=== PATIENT | male | born 2000 | race Two or more races ===

== ENCOUNTER 2025-02-08 11:28 | Emergency (ER) | payer SELFPAY ==
[2025-02-08 12:37] LABS: BASOPHILS ABSOLUTE AUTO 0.0 K/mm3 (0.0-0.2); BASOPHILS PERCENT AUTO 0.4 % (0.0-1.0); EOSINOPHILS ABSOLUTE AUTO 0.0 K/mm3 (0.0-0.4); EOSINOPHILS PERCENT AUTO 0.4 % (0.0-6.0); IMMATURE GRAN ABSOLUTE AUTO 0.01 K/mm3 (0.00-0.05); IMMATURE GRAN PERCENT AUTO 0.1 % (0.0-0.4); LYMPHOCYTES ABSOLUTE AUTO 1.0 K/mm3 (1.0-4.8); LYMPHOCYTES PERCENT AUTO 12.2 % (24.0-44.0); MEAN PLATELET VOLUME 9.9 fl (9.4-12.4); MONOCYTES ABSOLUTE AUTO 0.4 K/mm3 (0.0-0.8); MONOCYTES PERCENT AUTO 5.0 % (0.0-8.0); NEUTROPHILS ABSOLUTE AUTO 6.7 K/mm3 (1.8-7.7); NEUTROPHILS PERCENT AUTO 81.9 % (41.0-71.0); NRBC ABSOLUTE 0.00 (0.00-0.02); NRBC PERCENT 0.0 % (0.0-0.2); PLATELET COUNT,PLT 211 K/mm3 (150-400); RED BLOOD CELL COUNT 4.97 M/mm3 (4.52-5.90); WHITE BLOOD CELL COUNT,WBC 8.17 K/mm3 (3.9-11.3)
[2025-02-08 13:01] LABS: A/G RATIO 0.9 (1-2); ALANINE AMINOTRANSFERASE,ALT 34.0 U/L (16-63); ASPARTATE AMNIOTRANSFERASE,AST 21.0 U/L (15-37); BILIRUBIN TOTAL 0.4 mg/dL (0.2-1.0); BLOOD UREA NITROGEN,BUN 17.0 mg/dL (7-18); CARBON DIOXIDE,CO2 30.0 mEq/L (21-32); CHLORIDE,CL 105.0 mEq/L (98-107); CREATININE 1.1 mg/dL (0.7-1.3); EST CRCL DRUG DOSING (CG) 130.42 mL/min; ESTIMATED GFR 98.0 mL/min (>60); GLUCOSE RANDOM 100.0 mg/dL (70-99); POTASSIUM,K 4.2 mEq/L (3.5-5.1); PROTEIN TOTAL,TP 7.0 g/dl (6.4-8.2); SODIUM,NA 140.0 mEq/L (136-145); TSH 2.223 uIU/mL (0.358-3.74)
[2025-02-08] MEDS: Sodium Chloride 0.9% 10 ML Syringe FLUSH PRN (14:13)
== END 2025-02-08 14:25 | disposition home or self-care (01) ==
LOC: JD.ED 11:28
DX: R56.9 Unspecified convulsions (principal)
CPT/HCPCS: 36415; 70450; 80053; 84443; 85025; 86140; 99284; A9270